=== PATIENT | male | born 1960 | race Caucasian/White ===

== ENCOUNTER 2020-07-21 10:28 | Inpatient (IN) ==
[2020-07-21] MEDS ORDERED: Lactated Ringers 1000 ml BAG 1,000 ML IV ONE ×2 (10:47→13:46)
[2020-07-21] MEDS ORDERED: Diazepam INJ CARPUJECT 5 MG/ML IV ONE ×3 (10:48→13:32)
[2020-07-21] MEDS ORDERED: Thiamine 100 MG/ML 2 ml VIAL 100 MG, Folic Acid IV 1 MG, Multiple Vitamin IV ADULT 10 M... IV ONE (11:00)
[2020-07-21 11:15] LABS: Hematocrit 50 % (42-52); Hemoglobin 17.1 g/dL (14.0-18.0); Mean Corpuscular HGB Conc 34 g/dL (31-36); Mean Corpuscular Hemoglobin 30 pg (27-31); Mean Corpuscular Volume 89 fL (80-94); Mean Platelet Volume 9.4 fL (7.4-10.4); Platelet Count 149 10^3/uL (150-450); Red Blood Count 5.68 10^6 /uL (4.18-5.48); Red Cell Distribution Width 14 % (10-15); White Blood Count 36.6 10^3/uL (3.5-10.8)
[2020-07-21 11:39] LABS: Troponin I 0.17 ng/mL (<0.03)
[2020-07-21 11:40] LABS: ABS Basophils 0.1 10^3/ul (0-0.2); ABS Lymphocytes 17.6 10^3/ul (1.0-4.8); ABS Neutrophils 17.9 10^3/ul (1.5-7.7); ABS Nucleated RBC 0.1 10^3/ul; Nucleated Red Blood Cells % 0.1
[2020-07-21 11:44] LABS: ALT 41 U/L (7-52); AST 45 U/L (13-39); Albumin 4.9 g/dL (3.2-5.2); Albumin/Globulin Ratio 1.5 (1-3); Alkaline Phosphatase 63 U/L (34-104); Blood Urea Nitrogen 48 mg/dL (6-24); Calcium 11.9 mg/dL (8.6-10.3); Chloride 108 mmol/L (101-111); EGFR African American 74.7 (>60); EGFR Non-African American 61.8 (>60); Globulin 3.2 g/dL (2-4); Glucose 186 mg/dL (70-100); Indirect Bilirubin 1.3 mg/dL (0.3-1.0); Lipase 34 U/L (11.0-82.0); Magnesium 2.3 mg/dL (1.9-2.7); Potassium 4.2 mmol/L (3.5-5.0); Sodium 145 mmol/L (135-145); Total Protein 8.1 g/dL (6.4-8.9)
[2020-07-21 11:47] LABS: Anion Gap 24 mmol/L (2-11); CO2 Carbon Dioxide 13 mmol/L (22-32)
[2020-07-21] MEDS ORDERED: Magnesium Sulfate 2 gm BAG 2 GM/50 ML BAG IVPB ONE (11:48)
[2020-07-21 11:51] LABS: Influenza A Molecular Negative (Negative); Influenza B Molecular Negative (Negative)
[2020-07-21 11:59] LABS: Alcohol, S < 10 mg/dL (<10)
[2020-07-21] MEDS ORDERED: Thiamine 100 MG/ML 2 ml VIAL (200 mg) IM ONE (12:48)
[2020-07-21 13:00] LABS: Urine Appearance Cloudy; Urine Bilirubin Negative (Negative); Urine Blood 3+ (Negative); Urine Color Yellow; Urine Glucose Negative (Negative); Urine Ketones 2+ (Negative); Urine Nitrite Negative (Negative); Urine Protein 2+(100 mg/dL) (Negative); Urine Specific Gravity 1.021 (1.002-1.030); Urine Urobilinogen Negative (Negative)
[2020-07-21] MEDS ORDERED: LORazepam 2 mg VIAL 1 ml IV PUSH SCH (13:00)
[2020-07-21 13:04] LABS: Urine Bacteria Absent (Absent); Urine Red Blood Cell 3+(>10/hpf) (Absent); Urine White Blood Cell Trace(0-5/hpf) (Absent)
[2020-07-21 13:25] LABS: Urine Benzodiazepine Screen Presumptive Positive (None Detect); Urine Cannabinoids Screen None Detected (None Detect); Urine Opiates Screen None Detected (None Detect)
[2020-07-21 14:33] LABS: Phosphorus 1.6 mg/dL (2.5-5.0)
[2020-07-21] MEDS ORDERED: NS 0.9% IVPB ONE (14:49)
[2020-07-21] MEDS ORDERED: PHENOBARBITAL IVPB ONE (14:49)
[2020-07-21] MEDS ORDERED: Potassium Phosphate IV 15 MMOLE in NS 0.9% 250 ml 250 ML IVPB ONE (14:54)
[2020-07-21] MEDS ORDERED: PHENobarbital IV 65 MG/ML 1 ml VIAL IVPB ONE (14:55)
[2020-07-21] MEDS ORDERED: Piperacillin/Tazobac ADVAN 3.375 GM in NS 0.9% 100 ml BAG 100 ML IV ONE (15:00)
[2020-07-21] MEDS ORDERED: Zosyn per Pharmacy NOTE FOLLOW UP SCH (15:00)
[2020-07-21 15:11] LABS: Creatine Kinase 100 U/L (10-223)
[2020-07-21] MEDS ORDERED: Perflutren Lipid Microsphere 3 ML VIAL ONE (15:17)
[2020-07-21] MEDS: Lactated Ringers 1000 ml BAG 1,000 ML IV SCH (15:42)
[2020-07-21] MEDS ORDERED: PHENobarbital IV 260 MG in NS 0.9% 100 ml BAG 100 ML IVPB ONE (16:00)
[2020-07-21] MEDS: Metoprolol Tartrate 5 mg VIAL 5 ml VIAL (1 mg/ml) IV PRN ×2 (16:25→22:03)
[2020-07-21] MEDS ORDERED: Lorazepam PYXIS KEY PRN (16:26)
[2020-07-21 18:08] LABS: Troponin I 0.13 ng/mL (<0.03)
[2020-07-21] MEDS ORDERED: Acetaminophen IV 1 GM/100ML 100 ML IVPB ONE ×2 (18:14→23:30)
[2020-07-21] MEDS: LORazepam IV 0-3 mg for WAM protocol IV PUSH SCH ×3 (18:16→22:47)
[2020-07-21] MEDS: ZOSYN 3.375 GM Q8H per EXTENDED INFUSION IV SCH (19:23)
[2020-07-21 20:01] LABS: Hematocrit 42 % (42-52); Hemoglobin 14.1 g/dL (14.0-18.0); Mean Corpuscular HGB Conc 34 g/dL (31-36); Mean Corpuscular Hemoglobin 30 pg (27-31); Mean Corpuscular Volume 89 fL (80-94); Mean Platelet Volume 9.1 fL (7.4-10.4); Platelet Count 112 10^3/uL (150-450); Red Blood Count 4.68 10^6 /uL (4.18-5.48); Red Cell Distribution Width 14 % (10-15); White Blood Count 28.8 10^3/uL (3.5-10.8)
[2020-07-21 20:17] LABS: Calcium 9.7 mg/dL (8.6-10.3); EGFR African American 101.5 (>60); EGFR Non-African American 83.9 (>60); Phosphorus 1.5 mg/dL (2.5-5.0); Potassium 3.7 mmol/L (3.5-5.0)
[2020-07-21 21:01] LABS: ABS Basophils 0.2 10^3/ul (0-0.2); ABS Lymphocytes 14.4 10^3/ul (1.0-4.8); ABS Neutrophils 13.1 10^3/ul (1.5-7.7); Lymphocyte % 50.2 %; Nucleated Red Blood Cells % 0.1
[2020-07-21] MEDS: Heparin 5000 UNITS/ML 1 mL VIAL SUBCUT SCH (21:26)
[2020-07-21] MEDS: PHENobarbital LIQ 30 MG/7.5 ML UDC PO SCH (21:52)
[2020-07-21 23:23] LABS: Troponin I 0.11 ng/mL (<0.03)
[2020-07-22] MEDS: LORazepam IV 0-3 mg for WAM protocol IV PUSH SCH ×2 (00:10→22:13)
[2020-07-22] MEDS: Lactated Ringers 1000 ml BAG 1,000 ML IV SCH (00:11)
[2020-07-22] MEDS: ZOSYN 3.375 GM Q8H per EXTENDED INFUSION IV SCH ×3 (03:06→19:53)
[2020-07-22 05:09] LABS: Hematocrit 38 % (42-52); Hemoglobin 12.9 g/dL (14.0-18.0); Mean Corpuscular HGB Conc 34 g/dL (31-36); Mean Corpuscular Hemoglobin 30 pg (27-31); Mean Corpuscular Volume 89 fL (80-94); Red Blood Count 4.25 10^6 /uL (4.18-5.48); Red Cell Distribution Width 14 % (10-15); White Blood Count 26.1 10^3/uL (3.5-10.8)
[2020-07-22 05:10] LABS: ALT 29 U/L (7-52); AST 32 U/L (13-39); Albumin 3.5 g/dL (3.2-5.2); Albumin/Globulin Ratio 1.5 (1-3); Alkaline Phosphatase 47 U/L (34-104); Blood Urea Nitrogen 29 mg/dL (6-24); CO2 Carbon Dioxide 24 mmol/L (22-32); Calcium 9.7 mg/dL (8.6-10.3); EGFR African American 100.3 (>60); EGFR Non-African American 82.9 (>60); Globulin 2.3 g/dL (2-4); Glucose 132 mg/dL (70-100); Magnesium 1.9 mg/dL (1.9-2.7); Phosphorus 1.6 mg/dL (2.5-5.0); Potassium 3.2 mmol/L (3.5-5.0); Total Protein 5.8 g/dL (6.4-8.9)
[2020-07-22 05:11] LABS: Anion Gap 8 mmol/L (2-11); Chloride 118 mmol/L (101-111); Sodium 150 mmol/L (135-145); Troponin I 0.07 ng/mL (<0.03)
[2020-07-22] MEDS: Heparin 5000 UNITS/ML 1 mL VIAL SUBCUT SCH ×3 (05:50→21:29)
[2020-07-22] MEDS: PHENobarbital LIQ 30 MG/7.5 ML UDC PO SCH (05:50)
[2020-07-22 06:42] LABS: ABS Basophils 0.1 10^3/ul (0-0.2); ABS Lymphocytes 13.3 10^3/ul (1.0-4.8); ABS Monocytes 0.9 10^3/ul (0-0.8); ABS Neutrophils 11.8 10^3/ul (1.5-7.7); Nucleated Red Blood Cells % 0.1
[2020-07-22 06:43] LABS: Mean Platelet Volume 9.6 fL (7.4-10.4); Platelet Count 98 10^3/uL (150-450)
[2020-07-22] MEDS: Multivitamins/Minerals TAB PO SCH ×2 (08:19→08:28)
[2020-07-22] MEDS: Potassium Phosphate IV 15 MMOLE in NS 0.9% 250 ml 250 ML IVPB ONE ×2 (12:49→13:21)
[2020-07-22] MEDS ORDERED: Thiamine 100 MG/ML 2 ml VIAL 100 MG, Folic Acid IV 1 MG, Multiple Vitamin IV ADULT 10 M... IV ONE (13:00)
[2020-07-22] MEDS: Metoprolol Tartrate 5 mg VIAL 5 ml VIAL (1 mg/ml) IV PRN (19:21)
[2020-07-23] MEDS: LORazepam IV 0-3 mg for WAM protocol IV PUSH SCH ×2 (02:20→04:15)
[2020-07-23] MEDS: ZOSYN 3.375 GM Q8H per EXTENDED INFUSION IV SCH ×3 (03:43→18:48)
[2020-07-23 05:08] LABS: Calcium 9.1 mg/dL (8.6-10.3); EGFR African American 126.6 (>60); EGFR Non-African American 104.6 (>60); Magnesium 1.6 mg/dL (1.9-2.7); Phosphorus 2.5 mg/dL (2.5-5.0)
[2020-07-23] MEDS ORDERED: Potassium Chlor 20 meq TAB.ER PO ONE ×2 (05:30→10:44)
[2020-07-23] MEDS ORDERED: Magnesium Sulfate IV 3 GM in NS 0.9% 100 ml BAG 100 ML IVPB ONE (05:31)
[2020-07-23 05:34] LABS: ABS Basophils 0.1 10^3/ul (0-0.2); ABS Eosinophils 0.1 10^3/ul (0-0.6); ABS Lymphocytes 11.9 10^3/ul (1.0-4.8); ABS Monocytes 0.6 10^3/ul (0-0.8); ABS Neutrophils 10.3 10^3/ul (1.5-7.7); Eosinophil % 0.4 %; Hematocrit 35 % (42-52); Hemoglobin 11.7 g/dL (14.0-18.0); Lymphocyte % 51.7 %; Mean Corpuscular HGB Conc 34 g/dL (31-36); Mean Corpuscular Hemoglobin 31 pg (27-31); Mean Corpuscular Volume 90 fL (80-94); Mean Platelet Volume 9.7 fL (7.4-10.4); Nucleated Red Blood Cells % 0.1; Platelet Count 87 10^3/uL (150-450); Red Blood Count 3.84 10^6 /uL (4.18-5.48); Red Cell Distribution Width 14 % (10-15)
[2020-07-23] MEDS: KCL 20 MEQ/100 ML IVPREMIX 20 MEQ/100 ML BAG IV SCH ×2 (05:59→08:38)
[2020-07-23] MEDS: Heparin 5000 UNITS/ML 1 mL VIAL SUBCUT SCH ×3 (06:04→20:44)
[2020-07-23] MEDS: Multivitamins/Minerals TAB PO SCH (07:26)
[2020-07-24] MEDS: ZOSYN 3.375 GM Q8H per EXTENDED INFUSION IV SCH ×3 (03:43→19:43)
[2020-07-24] MEDS: Heparin 5000 UNITS/ML 1 mL VIAL SUBCUT SCH ×3 (05:14→21:04)
[2020-07-24 09:33] LABS: Hematocrit 37 % (42-52); Hemoglobin 12.4 g/dL (14.0-18.0); Mean Corpuscular HGB Conc 33 g/dL (31-36); Mean Corpuscular Hemoglobin 30 pg (27-31); Mean Corpuscular Volume 90 fL (80-94); Mean Platelet Volume 9.1 fL (7.4-10.4); Platelet Count 104 10^3/uL (150-450); Red Blood Count 4.12 10^6 /uL (4.18-5.48); Red Cell Distribution Width 14 % (10-15); White Blood Count 22.4 10^3/uL (3.5-10.8)
[2020-07-24 09:49] LABS: Albumin 3.4 g/dL (3.2-5.2); Albumin/Globulin Ratio 1.4 (1-3); Calcium 9.2 mg/dL (8.6-10.3); EGFR African American 132.6 (>60); EGFR Non-African American 109.6 (>60); Globulin 2.4 g/dL (2-4); Magnesium 1.6 mg/dL (1.9-2.7); Total Bilirubin 0.9 mg/dL (0.2-1.0); Total Protein 5.8 g/dL (6.4-8.9)
[2020-07-24] MEDS ORDERED: Potassium Chlor 20 meq TAB.ER PO ONE ×3 (09:56→20:41)
[2020-07-24] MEDS ORDERED: Magnesium Sulf 4 GM/100 ML IV 4,000 MG/100 ML BAG IVPB ONE (09:56)
[2020-07-24 10:13] LABS: ABS Basophils 0.1 10^3/ul (0-0.2); ABS Eosinophils 0.3 10^3/ul (0-0.6); ABS Lymphocytes 12.5 10^3/ul (1.0-4.8); ABS Monocytes 0.8 10^3/ul (0-0.8); ABS Neutrophils 8.8 10^3/ul (1.5-7.7); Eosinophil % 1.1 %; Lymphocyte % 55.8 %; Nucleated Red Blood Cells % 0.1
[2020-07-24] MEDS: Multivitamins/Minerals TAB PO SCH (10:44)
[2020-07-24 15:19] LABS: Calcium 8.9 mg/dL (8.6-10.3); EGFR African American 139.2 (>60); Magnesium 2.1 mg/dL (1.9-2.7); Potassium 3.4 mmol/L (3.5-5.0)
[2020-07-24] MEDS ORDERED: Potassium Chlor 10 meq TAB PO ONE (23:55)
[2020-07-25] MEDS: ZOSYN 3.375 GM Q8H per EXTENDED INFUSION IV SCH ×3 (03:32→11:27)
[2020-07-25] MEDS: Heparin 5000 UNITS/ML 1 mL VIAL SUBCUT SCH (05:06)
[2020-07-25] MEDS: Multivitamins/Minerals TAB PO SCH (08:13)
[2020-07-25 11:17] VITALS: BP 124/90
== END 2020-07-25 12:45 | disposition left against medical advice (07) | DRG 770 ==
LOC: ED 10:28 → ICU 12:45 → MEDTELE 07-23 16:35
PROVIDERS: ADMIT Internal Medicine Critical Care Medicine; ATTEND Internal Medicine